=== PATIENT | female | born 1960 | race Hispanic/Latino ===

== ENCOUNTER 2020-04-01 10:51 | Outpatient (CLI) | payer OTHER ==
--- NOTE | 2020-04-01 11:41 | XRay Report ---
LUMBOSACRAL SPINE 2 VIEWS INDICATION: BACK PAIN. COMPARISON: None. IMPRESSION: Normal alignment and bone mineralization. A superior endplate deformity with 20% loss o f height is identified at L1. This appears to represent a chronic superior endplate fracture. No conv incing acute fracture. Mild to moderate degenerative disc disease and facet arthropathy are identifi ed at L3-4, L4-5 and L5-S1. The sacrum and SI joints are unremarkable. Signer Name: Sebastian Zuluaga Jr, MD Signed: 04/01/2020 11:36 AM Workstation Name: [id number]
--- NOTE | 2020-04-01 11:42 | XRay Report ---
LEFT FOOT 2 VIEWS INDICATION: LEFT FOOT PAIN. COMPARISON: None. IMPRESSION: Previous surgical changes are noted involving the first metatarsal, second metatarsal he ad and second toe, correlate with history. No acute osseous findings or bone lesion is appreciated. No significant degenerative changes. Small plantar spur is noted. The soft tissues are unremarkable. Signer Name: Sebastian Zuluaga Jr, MD Signed: 04/01/2020 11:37 AM Workstation Name: [id number]
== END 2020-04-01 10:52 | disposition home or self-care (01) ==
LOC: XRAY 10:51
PROVIDERS: ATTEND Internal Medicine
DX: M47.817 Spondylosis without myelopathy or radiculopathy, lumbosacral region (principal); M77.32 Calcaneal spur, left foot; M47.816 Spondylosis without myelopathy or radiculopathy, lumbar region; M54.12 Radiculopathy, cervical region; M19.90 Unspecified osteoarthritis, unspecified site; G47.00 Insomnia, unspecified; G31.84 Mild cognitive impairment of uncertain or unknown etiology; F43.9 Reaction to severe stress, unspecified; F42.9 Obsessive-compulsive disorder, unspecified; Z98.890 Other specified postprocedural states
CPT/HCPCS: 72100